=== PATIENT | male | born 1975 | race Caucasian/White ===

== ENCOUNTER 2019-09-05 14:26 | Emergency (ER) | payer OTHER, SELFPAY ==
--- NOTE | 2019-09-05 14:32 | ED.SKABFB ---
HPI - Skin/Abscess/Foreign Bdy General Chief complaint: Skin/Abscess/Foreign Body Stated complaint: Infection on butttox Time Seen by Provider: 09/05/19 14:32 Source: patient and RN notes reviewed History of Present Illness HPI narrative: Patient is a 44-year-old male that presents the urgent care with complaints of an abscess to the buttocks. Patient states that he noticed the abscess approximately 1 week ago and it continues to be inflamed and then drained on its own. Patient states that he is diabetic but denies any history of abscesses. Denies any fevers, nausea, vomiting. Patient states he has been taking aspirin for the pain. Patient states that it seems to be better today . No other acute complaints. Patient appears to be slightly under the influence with possibly some tardive dyskinesia. Patient aware of the plan of care. Related Data Home Medications Medication Instructions Recorded Confirmed insulin glargine [Lantus U-100 100 unit SUBCUT DAILY 09/05/19 09/05/19 Insulin] Allergies Allergy/AdvReac Type Severity Reaction Status Date / Time No Known Allergies Allergy Verified 09/05/19 14:39 Review of Systems Review of Systems: Narrative: CONSTITUTIONAL: Denies fever, chills, or sweats. EYES: Denies visual changes, redness, or discharge. ENT: Denies rhinorrhea, congestion, sore throat, or otalgia. CARDIOVASCULAR: Denies chest pain, palpitations, or edema. RESPIRATORY: Denies cough or dyspnea. GASTROINTESTINAL: Denies abdominal pain, nausea, vomiting, or diarrhea. GENITOURINARY: Denies dysuria or hematuria. SKIN: Reports of an abscess to the buttocks MUSCULOSKELETAL: Denies back pain, joint pain, or myalgia. NEUROLOGIC: Denies headache, numbness, or weakness. All other systems reviewed are negative, except as documented in HPI. PMFSH Social History Social History Gender identity (if verbalized by the patient): Male Comments At the time of my signature, I reviewed and agree with the nursing past medical, surgical, social, and family history. There is no relevant family history pertinent to the patient complaint. Exam Narrative: Exam Narrative: GENERAL: This is a well-nourished, well-developed patient, in no apparent distress. HEAD: normocephalic, atraumatic. EYES: PERRL. Sclera clear/white. Vision is grossly intact. EARS: External ears normal NOSE: External nose normal with no obvious nasal discharge THROAT: Mucous membranes moist NECK: Neck supple CARDIOVASCULAR: Regular rate and rhythm without murmurs, gallops, or rubs. RESPIRATORY: Clear to auscultation. Breath sounds equal bilaterally. No wheezes, rales, or rhonchi. SKIN: Approximately 4 cm diameter abscess, mildly fluctuant erythemic draining yellow fluid to the left gluteal fold NEURO: awake, alert, and oriented to person, place and time. There were no obvious focal neurologic abnormalities. EXTREMITIES: No clubbing, cyanosis, or edema. Course Vital Signs Vital signs: Vital Signs Temperature 97.4 F L 09/05/19 14:35 Pulse Rate 79 09/05/19 14:35 Respiratory Rate 16 09/05/19 14:35 Blood Pressure 135/85 09/05/19 14:35 Pulse Oximetry 99 09/05/19 14:35 Temperature 97.4 F L 09/05/19 14:35 Pulse Rate 79 09/05/19 14:35 Respiratory Rate 16 09/05/19 14:35 Blood Pressure 135/85 09/05/19 14:35 Pulse Oximetry 99 09/05/19 14:35 Reviewed MDM - Skin/Abscess/Foreign Bdy MDM Narrative Medical decision making narrative: Advised the patient to continue to keep the area very clean. May use sitz bath as needed for comfort. May use warm compress to the area as needed. Complete oral antibiotic regimen as prescribed. Use cream to the area twice a day. If you notice any increase in size associated with fever, nausea, vomiting?go to the emergency room. Pharmacy was called to verify Lantus and patient has not refilled for approximately 1 year. Therefore, explained to the patient he will need to obtain refills from his PCP.
[2019-09-05 14:35] VITALS: BP 135/85; PULSE 79; RESP 16; TEMP 36.3; O2SAT 99
== END 2019-09-05 14:52 | disposition home or self-care (01) ==
PROVIDERS: Emergency Provider Nurse Practitioner Family
DX: L02.31 Cutaneous abscess of buttock (principal); E10.9 Type 1 diabetes mellitus without complications
CPT/HCPCS: 99213; G0463

== ENCOUNTER 2019-10-04 16:06 | Emergency (ER) | payer OTHER, SELFPAY ==
[2019-10-04 16:08] VITALS: BP 145/100; PULSE 120; RESP 18; TEMP 36.7; O2SAT 97
--- NOTE | 2019-10-04 17:06 | PC.NURSE ---
CLINICAL CARE COORDINATOR was in room to evaluate pt and pt was not there, as this nurse was telling the CLINICAL CARE COORDINATOR that he was in there but did not know of him leaving, pt was seen walking back into room. CLINICAL CARE COORDINATOR went in to eval pt
--- NOTE | 2019-10-04 17:32 | PC.NURSE ---
As this nurse was speaking with registration, pt came out of room and stated he did not want to stay anymore, that he was tired and wanted to go home and that he was going to make an appointment with his doctor for tomorrow. Advised pt that he was in the process of getting treatment and it would be in his best interest to stay, however, pt stated he was going to go home. MEMBERSHIP SECRETARY and charge nurse aware
--- NOTE | 2019-10-04 17:34 | ED.GENADULT ---
HPI - General Adult General Chief complaint: Upper Respiratory Infection Stated complaint: sore throat, hoarse, elevated blood sugars. Time Seen by Provider: 10/04/19 16:13 History of Present Illness HPI narrative: 44-year-old male presents emergency department with complaint of hoarse voice x1 month. He is also had intermittent episodes of nausea and vomiting in the morning without abdominal pain. He reports a change in his insurance recently and has been out of Lantus and blood sugars register as high with metformin alone. He has had some intermittent dyspnea, denies chest pain, denies sore throat, reports occasional cough, denies fever and has had some intermittent chills. He has not tried [id number] medications. Related Data Home Medications Medication Instructions Recorded Confirmed insulin glargine [Lantus U-100 30 unit SUBCUT DAILY 09/05/19 09/05/19 Insulin] metformin 1,000 mg PO BID 10/04/19 Allergies Allergy/AdvReac Type Severity Reaction Status Date / Time No Known Allergies Allergy Verified 09/05/19 14:39 Review of Systems Review of Systems: Narrative: CONSTITUTIONAL: Reports chills and hot and cold flashes. EYES: Denies visual changes, redness, or discharge. ENT: Denies rhinorrhea or congestion, denies sore throat. Reports hoarseness x1 month. CARDIOVASCULAR: Denies chest pain, palpitations, or edema. RESPIRATORY: Reports occasional cough and shortness of breath. GASTROINTESTINAL: Denies abdominal pain. Reports nausea and vomiting. Denies blood in emesis or bloody stools. GENITOURINARY: Denies dysuria or hematuria. SKIN: Denies rash or itching. MUSCULOSKELETAL: Denies back pain, joint pain, or myalgia. NEUROLOGIC: Denies headache, numbness, or weakness. PSYCHIATRIC: Denies anxiety or depression. FORMERLY [facility], [facility]–1983 Past Medical History Medical History (Updated 10/04/19 @ 18:27 by PRAFUL Dang) History of type 2 diabetes mellitus HTN (hypertension) Family History Family History (Updated 10/04/19 @ 18:29 by PRAFUL Dang) Unknown Heart disease Carcinoma of colon Breast cancer Hypertension HLD (hyperlipidemia) Social History Social History (Updated 10/04/19 @ 18:29 by PRAFUL Dang) Tobacco type: cigarettes Alcohol use details: occasional Substance use: never Gender identity (if verbalized by the patient): Male Exam Narrative: Exam Narrative: GENERAL: Well appearing, in no acute distress. HEAD: Normocephalic, atraumatic. EYES: PERRL. Sclera anicteric ENT: Nares clear, no rhinorrhea or epistaxis. Mucous membranes moist. Multiple dental caries with fractured upper central incisor. NECK: Supple. Thyroid palpable and without enlargement or palpable nodules/mass. No cervical LAD. CHEST: Clear to auscultation. No respiratory distress. HEART: Regular rate and rhythm. No murmur heard. Normal peripheral pulses. ABDOMEN: Soft, nontender, nondistended, normal active bowel sounds. EXTREMITIES: Normal range of motion. No edema. SKIN: Warm, dry, no rash. NEURO: No focal deficits. Alert and oriented x3. PSYCH: Normal mood and affect. Course Course Emergency Course: Evaluated patient and placing orders when told by RN patient stated he was leaving. Time was approx 1730 when patient left. I did not have an opportunity to talk with patient before he left. Vital Signs Vital signs: Vital Signs Temperature 36.7 C 10/04/19 16:08 Pulse Rate 120 H 10/04/19 16:08 Respiratory Rate 18 10/04/19 16:08 Blood Pressure 145/100 H 10/04/19 16:08 Pulse Oximetry 97 10/04/19 16:08 Temperature 36.7 C 10/04/19 16:08 Pulse Rate 120 H 10/04/19 16:08 Respiratory Rate 18 10/04/19 16:08 Blood Pressure 145/100 H 10/04/19 16:08 Pulse Oximetry 97 10/04/19 16:08 Medical Decision Making MDM Narrative Medical decision making narrative: Pt left before orders could be completed. Vital Signs Vital Signs: Vital Signs Temperature 36.7 C 10/03
== END 2019-10-04 17:37 | disposition left against medical advice (07) ==
DX: J06.9 Acute upper respiratory infection, unspecified (principal); E11.9 Type 2 diabetes mellitus without complications; I10 Essential (primary) hypertension; Z79.4 Long term (current) use of insulin
CPT/HCPCS: 99281